=== PATIENT | male | born 1955 | race Caucasian/White ===

== ENCOUNTER → 2017-08-05 | Outpatient (CLI) | payer OTHER | LOC: FIMAGING 14:57 | PROVIDERS: ATTEND Internal Medicine | DX: R91.8 Other nonspecific abnormal finding of lung field (principal); J43.9 Emphysema, unspecified; I25.10 Atherosclerotic heart disease of native coronary artery without angina pectoris ==

== ENCOUNTER → 2018-11-11 | Outpatient (CLI) | payer OTHER | LOC: FIMAGING 09:16 | PROVIDERS: ATTEND Internal Medicine | DX: M85.80 Other specified disorders of bone density and structure, unspecified site (principal) ==

== ENCOUNTER 2018-12-16 11:38 | Inpatient (IN) | payer OTHER ==
--- NOTE | 2018-12-16 12:02 | EDPHY ---
H & P Stated Complaint: Hypoxia, sent from , 88% on Room air, Sick Since wednesday Time Seen by Provider: 12/16/18 11:58 HPI/ROS: HPI: This is a 63-year-old male who presents with Chief Complaint: Hypoxia, sent from , 88% on Room air, Sick Since wednesday Location: Chest Quality: Hypoxia Duration: Unknown Signs and Symptoms: + fever, no nausea, + vomiting, no diarrhea, no urinary symptoms, no chest pain, no shortness of breath, no wheezing, + cough, no sore throat, no neck stiffness, no joint pain, no swollen glands, no ear pain, no rash, + generalized weakness, + fatigue, no lower extremity edema Timing: Acute, constant Severity: Moderate to severe Context: Patient has a history of hyperlipidemia, tobacco user, no history of lung disease, presents from the urgent care center for complaints of nonproductive cough and chest congestion accompanied by fever of a T-max 101 F , generalized fatigue, and generalized weakness. Wednesday they were in [facility] and stated x-ray night in the hotel room as patient started to developed some nausea and vomiting and generalized fatigue. Wednesday he started to experience nasal congestion, chest congestion and nonproductive cough. Patient has been taking Tylenol. He slept from Wednesday night approximately 36 hr without food or water. Did not receive influenza vaccine this year. Urgent care tested for influenza and negative. While at Urgent Care O2 sats were 88% on room air. Modifying Factors: Given DuoNeb at urgent care and taking Tylenol Comment: ROS: A comprehensive 10 system review of systems is otherwise negative aside from elements mentioned in the history of present illness. MEDICAL/SURGICAL/SOCIAL HISTORY: Medical history: Hyperlipidemia. Surgical history: Denies Social history: Lives in [place]. Tobacco user. Employed as an electrical engineering manager. Family history noncontributory. CONSTITUTIONAL: Ill but nontoxic-appearing elderly white male, awake and alert , no obvious distress HEENT: Atraumatic and normocephalic, PERRL, EOMI. Nares patent; no rhinorrhea; no nasal mucosal edema. Tympanic membranes clear. Oropharynx clear, no exudate and moist pink mucosa. Airway patent. No lymphadenopathy. No meningismus. Cardiovascular: Normal S1/S2, regular rate, regular rhythm, without murmur rub or gallop. PULMONARY/CHEST: Symmetrical and nontender. Diminished breath sounds bilaterally. Good air movement. No accessory muscle usage. ABDOMEN: Soft, nondistended, nontender, no rebound, no guarding, no peritoneal signs, no masses or organomegaly. No CVAT. EXTREMITIES: 2/2 pulses, strength 5/5, no deformities, no clubbing, no cyanosis or edema. NEUROLOGICAL: no focal neuro deficits. GCS 15. SKIN: Warm and dry, no erythema. no rash. Good capillary refill. Source: Patient, RN/MD Exam Limitations: No limitations - Personal History Current Tetanus Diphtheria and Acellular Pertussis (TDAP): Yes - Medical/Surgical History Hx Asthma: No Hx Chronic Respiratory Disease: No Hx Diabetes: No Hx Cardiac Disease: No Hx Renal Disease: No Hx Cirrhosis: No Hx Alcoholism: No Hx HIV/AIDS: No Hx Splenectomy or Spleen Trauma: No Other PMH: high cholesterol - Social History Smoking Status: Current every day smoker Constitutional: Initial Vital Signs Temperature (C) 36.7 C 12/16/18 11:49 Heart Rate 82 12/16/18 11:49 Respiratory Rate 16 12/16/18 11:49 O2 Sat (%) 88 L 12/16/18 11:49 O2 Delivery Mode Room Air O2 (L/minute) 4 Allergies/Adverse Reactions: No Known Allergies Allergy (Verified 12/16/18 13:47) Home Medications: Medication Instructions Recorded Aspirin [Aspirin 81mg (*)] 81 mg PO HS 12/16/18 Cholecalciferol Vit D3 [Vitamin D3 1,000 units PO DAILY 12/16/18 (*)] Herbals/Supplements -Info Only 1 ea PO DAILY 12/16/18 Lovastatin 40 mg PO DAILY18 12/16/18 Multivitamins [Multivitamin (*)] 1 each PO DAILY 12/16/18 Dundee-3 Fatty Acids [Fish Oil 1000 1,000 mg PO DAILY 12/16/18 mg (*)] Medical Decision Making - Diagnostics Imaging Results: Imaging Impressions Chest X-Ray 12/16/18 11:57 Impression: Suspect pneumonia superimposed upon underlying airways disease ED Course/Re-evaluation: Vital signs reviewed and 86-88% on room air upon arrival. Placed on 6 L nasal cannula and environmental services floor tech. IV access, laboratory studies, lactic acid, blood culture, respiratory pathogen swab, chest x-ray ordered Patient given 1 L normal saline to start Chest x-ray my read shows right middle lobe and right lower lobe opacity. IV Rocephin and IV azithromycin given for community-acquired pneumonia 1300: Labs reviewed. Lactic acid 2.2, sodium 133, potassium 3.9, BUN 28, creatinine 1.3, platelet count 133 K, no leukocytosis, no anemia, no signs of CHF Will give IV fluids per sepsis protocol 30 mL/kg, repeat lactic acid ordered 1309: Notified nursing to repeat vital signs. ED decision to consult hospitalist for admission. Spoke with Ivonne who kindly agrees to admit patient under the care of Dr. Fuentes. Respiratory pathogen panel results pending at time of consult. This patient was seen under the supervision of my primary supervising physician. I evaluated care for this patient with attending. Differential Diagnosis: Adult fever including but not limited to viral syndromes including influenza, urinary tract infection, pneumonia and sepsis. - Data Points Laboratory Results: Laboratory Results 12/16/18 12:18 12/16/18 12:18 12/16/18 12/16/18 12/16/18 12:30 12:18 12:18 WBC RBC Hgb POC Hgb 16.3 gm/dL gm/dL (13.7-17.5) Hct POC Hct 48 % % (40-51) MCV MCH MCHC RDW Plt Count MPV Neut % (Auto) Lymph % (Auto) Gosper % (Auto) Eos % (Auto) Baso % (Auto) Nucleat RBC Rel Count Absolute Neuts (auto) Absolute Lymphs (auto) Absolute Monos (auto) Absolute Eos (auto) Absolute Basos (auto) Absolute Nucleated RBC Immature Gran % Seg Neutrophils % Band Neutrophils % Lymphocytes % Monocytes % Eosinophils % Basophils % Metamyelocytes % Myelocytes % Promyelocytes % Blast Cells % Immature Gran # Absolute Seg Neuts Absolute Band Neuts Absolute Lymphocytes Absolute Monocytes Absolute Eosinophils Absolute Basophils Absolute Metamyelocyte Absolute Myelocytes Absolute Promyelocytes Absolute Plasma Cells Nucleated RBCs Atypical Lymphocytes Absolute Blast Cells Plasma Cells % Platelet Estimate Smear Review By [facility] Lactic Acid POC Sodium 134 mEq/L L mEq/L (135-145) Sodium 133 mEq/L L mEq/L (135-145) POC Potassium 3.7 mEq/L mEq/L (3.3-5.0) Potassium 3.9 mEq/L mEq/L (3.5-5.2) POC Chloride 97 mEq/L mEq/L (97-110) Chloride 96 mEq/L L mEq/L (97-110) Carbon Dioxide 22 mEq/l mEq/l (22-31) POC Total CO2 22 mEq/L mEq/L (22-31) Anion Gap 15 mEq/L H mEq/L (6-14) POC BUN 28 mg/dL H mg/dL (7-23) BUN 28 mg/dL H mg/dL (7-23) Creatinine 1.3 mg/dL mg/dL (0.7-1.3) POC Creatinine 1.4 mg/dL H mg/dL (0.7-1.3) Estimated GFR 56 Glucose 158 mg/dL H mg/dL (70-100) POC Glucose 167 mg/dL H mg/dL (70-100) Calcium 8.7 mg/dL mg/dL (8.5-10.4) NT-Pro-B Natriuret Pep 170 pg/mL H pg/mL (0-125) Procalcitonin 0.82 ng/mL H ng/mL (0.02-0.10) 12/16/18 12/16/18 12:18 12:18 WBC 6.14 10^3/uL 10^3/uL (3.80-9.50) RBC 4.96 10^6/uL 10^6/uL (4.40-6.38) Hgb 15.4 g/dL g/dL (13.7-17.5) POC Hgb Hct 45.2 % % (40.0-51.0) POC Hct MCV 91.1 fL fL (81.5-99.8) MCH 31.0 pg pg (27.9-34.1) MCHC 34.1 g/dL g/dL (32.4-36.7) RDW 12.3 % % (11.5-15.2) Plt Count 133 10^3/uL L 10^3/uL (150-400) MPV 10.5 fL fL (8.7-11.7) Neut % (Auto) Not Reported Lymph % (Auto) Not Reported Gosper % (Auto) Not Reported Eos % (Auto) Not Reported Baso % (Auto) Not Reported Nucleat RBC Rel Count Not Reported Absolute Neuts (auto) Not Reported Absolute Lymphs (auto) Not Reported Absolute Monos (auto) Not Reported Absolute Eos (auto) Not Reported Absolute Basos (auto) Not Reported Absolute Nucleated RBC Not Reported Immature Gran % Not Reported Seg Neutrophils % 71.0 % % Band Neutrophils % 13.0 % % Lymphocytes % 9.0 % % Monocytes % 7.0 % % Eosinophils % 0.0 % % Basophils % 0.0 % % Metamyelocytes % 0.0 % % Myelocytes % 0.0 % % Promyelocytes % 0.0 % % Blast Cells % 0.0 % % Immature Gran # Not Reported Absolute Seg Neuts 4.36 10^3/uL 10^3/uL (1.70-6.50) Absolute Band Neuts 0.80 10^3/uL H 10^3/uL (0.00-0.70) Absolute Lymphocytes 0.55 10^3/uL L 10^3/uL (1.00-3.00) Absolute Monocytes 0.43 10^3/uL 10^3/uL (0.30-0.80) Absolute Eosinophils 0.00 10^3/uL L 10^3/uL (0.03-0.40) Absolute Basophils 0.00 10^3/uL L 10^3/uL (0.02-0.10) Absolute Metamyelocyte 0.00 10^3/mL 10^3/mL (0.00-0.00) Absolute Myelocytes 0.00 10^3/mL 10^3/mL (0.00-0.00) Absolute Promyelocytes 0.00 10^3/uL 10^3/uL (0.00-0.00) Absolute Plasma Cells 0.00 10^3/uL 10^3/uL (0.00-0.00) Nucleated RBCs 0 /100 WBC /100 WBC (0-0) Atypical Lymphocytes 2+ H Absolute Blast Cells 0.00 10^3/uL 10^3/uL (0.00-0.00) Plasma Cells % 0.0 % % Platelet Estimate DECREASED L (ADEQ) Smear Review By Pending VBG Lactic Acid 2.2 mmol/L H mmol/L (0.7-2.1) POC Sodium Sodium POC Potassium Potassium POC Chloride Chloride Carbon Dioxide POC Total CO2 Anion Gap POC BUN BUN Creatinine POC Creatinine Estimated GFR Glucose POC Glucose Calcium NT-Pro-B Natriuret Pep Procalcitonin Microbiology Results: MICROBIOLOGY 12/16/18 12:18 Nasal, Sinus - Swab Respiratory Panel (PCR) - Final Influenza Virus Type A H3 Medications Given: Discontinued Medications Sodium Chloride (Ns) 1,000 mls @ 0 mls/hr IV ONCE ONE; Wide Open PRN Reason: Protocol Stop: 12/16/18 12:04 Last Admin: 12/16/18 12:17 Dose: 1,000 mls Sodium Chloride (Ns) 2,200 mls @ 4,400 mls/hr 30 ml/kg infuse over 30 min ( 2200 ml) IV EDNOW ONE PRN Reason: Protocol Stop: 12/16/18 13:31 Last Admin: 12/16/18 13:15 Dose: 2,200 mls Azithromycin 500 mg/ Dextrose 255 mls @ 255 mls/hr IV EDNOW ONE PRN Reason: Protocol Stop: 12/16/18 14:02 Last Admin: 12/16/18 13:42 Dose: 255 mls Ceftriaxone Sodium/Dextrose (Rocephin 1 Gm (Premix)) 50 mls @ 100 mls/hr IV EDNOW ONE PRN Reason: Protocol Stop: 12/16/18 13:32 Last Admin: 12/16/18 13:14 Dose: 50 mls Point of Care Test Results: Chemistry 12/16/18 12:30 POC Sodium 134 mEq/L L mEq/L (135-145) POC Potassium 3.7 mEq/L mEq/L (3.3-5.0) POC Chloride 97 mEq/L mEq/L (97-110) POC Total CO2 22 mEq/L mEq/L (22-31) POC BUN 28 mg/dL H mg/dL (7-23) POC Creatinine 1.4 mg/dL H mg/dL (0.7-1.3) POC Glucose 167 mg/dL H mg/dL (70-100) ISTAT H&H 12/16/18 12:30 POC Hgb 16.3 gm/dL gm/dL (13.7-17.5) POC Hct 48 % % (40-51) Departure - Departure Disposition: [facility] Inpatient Acute Clinical Impression: Acute renal insufficiency, Sepsis due to pneumonia, Thrombocytopenia Community acquired pneumonia Qualifiers: Laterality: right Lung location: middle lobe of lung Qualified Code(s): J18.1 - Lobar pneumonia, unspecified organism Condition: Fair
[2018-12-16] MEDS ORDERED: NS 1,000 ML IV ONE (12:03)
[2018-12-16] MEDS ORDERED: NS 2,200 ML IV ONE (13:02)
[2018-12-16] MEDS ORDERED: AZITHROMYCIN IV 500 MG in D5W 250 ML IV ONE (13:03)
[2018-12-16 13:17] LABS: PLATELET COUNT 133 10^3/uL (150-400)
[2018-12-16] MEDS ORDERED: ACETAMINOPHEN 325 MG TAB PO PRN (14:06)
[2018-12-16] MEDS ORDERED: ZOLPIDEM TARTRATE 5 MG TAB PO PRN (14:06)
[2018-12-16] MEDS ORDERED: ONDANSETRON 4 MG/2 ML VIAL IVP PRN (14:06)
[2018-12-16] MEDS: NS 1,000 ML IV SCH (15:19)
--- NOTE | 2018-12-16 15:43 | PDGENHP ---
History and Physical History and Physical: CC: HISTORY: This patient comes into our ER transferred from urgent care where he presented with four days of fever to 101, nonproductive cough, nausea vomiting, fatigue, nasal congestion. He did not get a flu vaccine this year although he tested negative at the urgent care for influenza. He was apparently in [facility] when he became ill. ROS: A comprehensive 10 system review revealed no other significant findings PAST MEDICAL HISTORY: Hypercholesterolemia Osteopenia Wrist fractures Appendectomy FAMILY MEDICAL HISTORY: Prostate cancer Osteoporosis SOCIAL HISTORY: Cigarette smoker No use of illicit drugs He lives [place] in [place], [place] than [place] Works as an electrical engineering director MEDICATIONS: The patients list has been reconciled by our clinical pharmacist in the EMR. I have reviewed the list and ordered appropriate medicines. PHYSICAL EXAMINATION: Vital Signs: All stable without fever Normal oxygen levels on room air Product Manager Medical Device: Examination: General: alert, oriented, good mentation, relaxed Skin: warm, dry, good color, no rash HEENT: normal Neck: no mass or jvd Resps: relaxed Lungs: clear breath sounds Heart: regular, no murmur Abdomen: soft, nondistended, nontender, +BS, no mass Upper Extremities: normal Lower Extremities: no edema, warm No Bleeding or bruising Neurologic: normal speech/language, normal software engineer, no focal weakness IV site: looks normal LABORATORY DATA: Normal CBC Initial venous lactate 2 subsequent check 1 BUN is up at 28 with a creatinine of 1.3, anion gap is elevated at 15 and his lactate again slightly elevated Sodium 133 RADIOLOGY STUDIES: I have reviewed images from chest x-ray done today in the ER. There is evidence of emphysema and COPD with hyperexpansion, and there is a very mild right middle lobe infiltrate questionable tiny area of left lower lobe infiltrate. MICROBIOLOGY: Positive for influenza A in the ER Blood cultures been obtained and are pending 12 LEAD EKG: ASSESSMENT: -Acute community-acquired pneumonia, post influenza -Acute influenza a infection -Acute COPD exacerbation -Tobacco abuse -Dehydration -Nausea vomiting -Myalgias PLANS: * Will bring in to hospital initially on observation as he may be able to improve well enough to get home by tomorrow but may need to change to inpatient ; he does live at high altitude and will need to make sure his respirations will be stable for that * Blood cultures obtained and antibiotics started in the ER, will continue empiric therapy for community-acquired pneumonia * Will begin Tamiflu * Will begin prednisone, and will have p.r.n. Bronchodilators available * Consider discharge on Advair or similar if necessary * Recommend yearly flu vaccines and pneumonia vaccines to start * IV hydration * Ambulation as tolerated as recommended * I had a very long discussion with the patient about what looks very much like emphysema considering his lung exam chest x-ray and smoking history. We talked about the need to get pulmonary function testing for diagnostic certainty, as well as preventive measures such as yearly flu shot, pneumonia vaccine, daily exercise for physical fitness, a variety of other measures. Also talked about the risks of cancer and the success's of lung cancer screening and that he could consider that as possible preventive measure that he can engage in I have reviewed the patient's case in detail with Dr. Jeannette Reyes I have reviewed the patient's past medical records as part of this assessment, including outpatient clinic records
[2018-12-16] MEDS: OSELTAMIVIR PHOSPHATE 75 MG CAP PO SCH (16:56)
[2018-12-16] MEDS: predniSONE 20 MG TAB PO SCH (16:56)
[2018-12-16] MEDS ORDERED: PRAVASTATIN SODIUM 40 MG TAB PO SCH (18:00)
[2018-12-16] MEDS ORDERED: ASPIRIN 81 MG CHEWABLE TAB PO SCH (21:00)
[2018-12-16] MEDS ORDERED: MELATONIN 3 MG TAB PO SCH (21:00)
[2018-12-17] MEDS: NS 1,000 ML IV SCH (02:01)
[2018-12-17] MEDS: ENOXAPARIN 40 MG/0.4 ML SYR SC SCH ×2 (07:58→09:23)
[2018-12-17] MEDS: OMEGA-3 FATTY ACIDS 1,000 MG CAP PO SCH ×2 (07:58→09:23)
[2018-12-17] MEDS: predniSONE 20 MG TAB PO SCH (07:58)
[2018-12-17] MEDS: CHOLECALCIFEROL VIT D3 1,000 UNITS TAB PO SCH ×2 (07:58→09:23)
[2018-12-17] MEDS: MULTIVITAMINS 1 EACH TAB PO SCH ×2 (07:58→09:23)
[2018-12-17] MEDS: OSELTAMIVIR PHOSPHATE 75 MG CAP PO SCH (07:58)
[2018-12-17] MEDS ORDERED: AZITHROMYCIN 250 MG TAB PO SCH (09:00)
[2018-12-17] MEDS ORDERED: ALBUTEROL 60 PUFFS/8 GM MDI IH PRN (09:38)
--- NOTE | 2018-12-17 10:25 | ASMTCMCOM ---
CM Note CM Note Notes: Pt admitted from Urgent Care for hypoxia. Pt tested positive for the flu, he lives in [place] with his girlfriend and works at [employer]. No therapies ordered, anticipate he will dc home with support of GF when medically stable. CM available for any changes. Date Signed: 12/17/2018 10:24 AM Electronically Signed By:Nette Garza RN
--- NOTE | 2018-12-17 10:36 | HOSPPROG ---
Hospitalist Progress Note Assessment/Plan: 63-year-old with acute COPD exacerbation secondary to influenza. Stable to for discharge. Subjective: Feeling better, states he will be fine at altitude and does not need any oxygen. His cough is better and he is feeling much improved. Objective: Vital Signs Temp Pulse Resp BP Pulse Ox 36.8 C 77 14 115/71 92 12/17/18 07:59 12/17/18 10:25 12/17/18 10:25 12/17/18 07:59 12/17/18 10:25 12/16/18 12/17/18 12/18/18 05:59 05:59 05:59 Intake Total 390 Balance 390 - Physical Exam Constitutional: no apparent distress Respiratory: no respiratory distress, reduced air movement, No expiratory wheeze , No inspiratory crackles ICD10 Worksheet Patient Problems: Problems Problem Status Onset Acute renal insufficiency Acute Community acquired pneumonia Acute Sepsis due to pneumonia Acute Thrombocytopenia Acute
--- NOTE | 2018-12-17 10:48 | ASMTLACE ---
LACE Length of stay for Answers: 1 day current admission Acuity / Level of Answers: Yes Care: Did the patient have an inpatient admission? Comorbidities - select Answers: Other Notes: Hypercholesterolemia all that apply # of Emergency department Answers: 1-2 visits in the last 6 months Score: 6 Date Signed: 12/17/2018 10:48 AM Electronically Signed By:Nette Garza RN
--- NOTE | 2018-12-17 11:05 | GDS ---
[f rep st] DISCHARGE SUMMARY DIAGNOSIS: 1. Acute chronic obstructive pulmonary disease exacerbation. 2. Influenza. HOSPITAL COURSE: The patient is a 63-year-old man who lives at altitude, who comes in with increasin g cough and shortness of breath. Evaluation included a respiratory panel, which confirmed influenza virus type A H3. Chest x-ray showed possible infiltrate, bacterial versus viral. He was placed on a ntibiotics and Tamiflu. Over the course of his hospitalization, he improved to a point where he is s aturating 92% on room air. He will be discharged on prednisone, albuterol inhaler, and Zithromax as well as Tamiflu. PHYSICAL EXAMINATION: VITAL SIGNS: On the day of discharge, stable. He has been afebrile. Heart r ate 77, oxygen saturation 92 on room air, blood pressure 115/71. GENERAL: He is alert and oriented. LUNGS: Clear with slightly decreased breath sounds and occasional wheezing. DISCHARGE MEDICATIONS: Please see discharge medication form. Followup will be with Dr. Baum this week. I did give him an inhaler from the hospital for albuter ol, which did improve his symptoms markedly. /[id number]/MODL
[2018-12-17 11:26] VITALS: BP 101/64
--- NOTE | 2018-12-21 15:55 | PQFORM ---
PHYSICIAN QUERY FORM Needs Your Response This query form is being sent to you to assure this patient record is coded properly. Please respond to the question below: PRINCIPAL DATABASE DEVELOPER QUESTION: Dr Gomez In addition to Influenza abd Exacerbation of COPD the chart documentation seems to reflect Pneumonia ... right middle and r lower opacity ... azithromycin given for community acquired pneumonia...X ray show possible pneumonia . However this diagnosis is not reflected in the Discharge Summary. Did this patient have Pneumonia? __x Yes __ No __ Other (Please Specify ) __ Unable to determine Thank You Chasity LUIS Student Outreach Coordinator INSTRUCTIONS FOR RESPONSE: Answer question by clicking on the "Edit Document" button. Move cursor to area below the stars. When complete, hit "Save." Click on the "Sign" button, then click "Sign" again. Type in your PIN and hit "Enter." MTDD
== END 2018-12-17 12:28 | disposition home or self-care (01) | DRG 194 ==
LOC: F3E 14:57
PROVIDERS: ADMIT Internal Medicine; ATTEND Internal Medicine
DX: J10.00 Influenza due to other identified influenza virus with unspecified type of pneumonia (principal); J44.0 Chronic obstructive pulmonary disease with (acute) lower respiratory infection; J18.9 Pneumonia, unspecified organism; J44.1 Chronic obstructive pulmonary disease with (acute) exacerbation; E86.0 Dehydration; E78.5 Hyperlipidemia, unspecified; M85.80 Other specified disorders of bone density and structure, unspecified site; F17.210 Nicotine dependence, cigarettes, uncomplicated
CPT/HCPCS: 82435-PO; 82565-PO; 82947-PO; 84132-PO; 84295-PO; 84520-PO; 85014-ER; 96374; J0456; J0696; J1650; J7512